=== PATIENT | male | born 1990 | race Caucasian/White ===

== ENCOUNTER 2025-04-20 17:01 | Emergency (ER) | payer OTHER, SELFPAY ==
[2025-04-20] VITALS (11 sets, daily range): BP systolic 128–156; BP diastolic 81–95; PULSE 86–105; RESP 18–24; TEMP 36.6; O2SAT 93–97; BMI 29.9
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
[2025-04-20] MEDS: IBUPROFEN 400 MG TABLET 800 MG PO (17:26)
[2025-04-20] MEDS: ACETAMINOPHEN 325 MG TABLET 650 MG PO (17:26)
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
[2025-04-20] MEDS: HYDROMORPHONE 1 MG INJ IV (22:34)
== END 2025-04-20 23:06 | disposition home or self-care (01) ==
PROVIDERS: Emergency Provider Family Medicine
DX: R06.00 Dyspnea, unspecified (principal); S42.022A Displaced fracture of shaft of left clavicle, initial encounter for closed fracture; M54.2 Cervicalgia; V19.9XXA Pedal cyclist (driver) (passenger) injured in unspecified traffic accident, initial encounter; Y92.838 Other recreation area as the place of occurrence of the external cause; S20.412A Abrasion of left back wall of thorax, initial encounter; S40.812A Abrasion of left upper arm, initial encounter; S30.811A Abrasion of abdominal wall, initial encounter; S80.212A Abrasion, left knee, initial encounter
CPT/HCPCS: 71260; 73000; 73030; 74177; 96374; 99284; 99285; J1171; Q9967